=== PATIENT | female | born 1980 | race Caucasian/White ===

== ENCOUNTER 2020-06-28 12:35 | Emergency (ER) | payer SELFPAY ==
[~2020-06-28] VITALS: Ht 162.6 cm; Wt 50.0 kg
[2020-06-28] MEDS ORDERED: NS IV 1000 ML 1,000 ML IV SCH (13:00)
[2020-06-28] MEDS ORDERED: cefTRIAXone FOR IV USE 2,000 MG in WATER (STERILE) FOR INJECTION 20 ML IV ONE (13:00)
--- NOTE | 2020-06-28 13:05 | ED Upper Extremity ---
General Chief Complaint: Upper Extremity Stated Complaint: R ARM SWOLLEN History of Present Illness Date Seen by Provider: Jun 28, 2020 Time Seen by Provider: 12:42 Initial Comments 39-year-old female reports on 06/25/2020 that she was attempting to inject methamphetamines when she missed the vein and caused extravasation into her right forearm. Patient does report she was using a clean needle. Since then she has been having pain and swelling in her right upper extremity throughout the forearm. She does repeat Jere having a tetanus vaccine within the last 3 months after falling and cutting herself on glass. She did begin taking Keflex 250 mg every 8 hours that she was prescribed for the injury with glass. She denies having a primary care provider. She reports using methamphetamines approximately once a week, denies any other drug use. Has been taking Ibuprofen for pain. Onset: other (06/25/20) Pain/Injury Location: right arm Method of Injury: other (Injected Meth on 06/25/20, missed the vein. Swelling started shortly after and getting worse, with pain and erythema. ) Modifying Factors: Improves With Rest Allergies and Home Medications Allergies Coded Allergies: amoxicillin (Verified Allergy, Unknown, 06/28/20) clavulanic acid (Verified Allergy, Unknown, 06/28/20) levofloxacin (Verified Allergy, Unknown, 06/28/20) Home Medications Clindamycin HCl 300 Mg Capsule, 300 MG PO BID Prescribed by: PAL CRANE on 06/28/20 1441 Patient Home Medication List Home Medication List Reviewed: Yes Review of Systems Constitutional: no symptoms reported, see HPI Respiratory: no symptoms reported, see HPI Musculoskeletal: see HPI; No joint pain; muscle pain (Right forearm, secondary to swelling) All Other Systems Reviewed Negative Unless Noted: Yes Past Uhcobyo-Raedcg-Wfagju Hx Past Med/Social Hx: Reviewed and Corrections made Patient Social History Alcohol Use: Occasionally Uses Recreational Drug Use: Yes Drug of Choice: Methamphetamines Smoking Status: Current Everyday Smoker (1/2 pack/day) Type Used: Cigarettes Recent Foreign Travel: No Contact w/Someone Who Travel: No Physical Exam Vital Signs Vital Signs - First Documented 06/28/20 13:11 Temp 36.6 Pulse 117 Resp 18 B/P (MAP) 121/75 (90) Pulse Ox 99 O2 Delivery Room Air Capillary Refill : Height, Weight, BMI Height: '" Weight: lbs. oz. kg; BMI Method: General Appearance: WD/WN, no apparent distress HEENT: PERRL/EOMI, normal ENT inspection, TMs normal, pharynx normal Neck: non-tender, full range of motion, supple Cardiovascular: normal peripheral pulses, regular rate, rhythm Respiratory: chest non-tender, lungs clear, normal breath sounds Gastrointestinal: normal bowel sounds, non tender, soft Elbow/Forearm: Right, limited ROM (secondary to pain and swelling), pain, soft tissue tenderness, swelling (2+ ) Hand: Right, limited ROM, soft tissue tenderness, swelling Neurologic/Tendon: normal sensation, normal motor functions, normal tendon functions Neurologic/Psychiatric: no motor/sensory deficits, alert, normal mood/affect, oriented x 3 Skin: normal color, warm/dry, other Cap refill <3 sec, right upper ext, 2+ radial and ulnar pulse bilat UEs. Progress/Results/Core Measures Results/Orders Lab Results Laboratory Tests Test 06/28/20 12:55 Range/Units White Blood Count 12.9 H 4.3-11.0 10^3/uL Red Blood Count 4.51 3.80-5.11 10^6/uL Hemoglobin 12.5 11.5-16.0 g/dL Hematocrit 39 35-52 % Mean Corpuscular Volume 87 80-99 fL Mean Corpuscular Hemoglobin 28 25-34 pg Mean Corpuscular Hemoglobin Concent 32 32-36 g/dL Red Cell Distribution Width 12.7 10.0-14.5 % Platelet Count 300 130-400 10^3/uL Mean Platelet Volume 9.6 9.0-12.2 fL Immature Granulocyte % (Auto) 0 % Neutrophils (%) (Auto) 73 42-75 % Lymphocytes (%) (Auto) 19 12-44 % Monocytes (%) (Auto) 7 0-12 % Eosinophils (%) (Auto) 1 0-10 % Basophils (%) (Auto) 0 0-10 % Neutrophils # (Auto) 9.3 H 1.8-7.8 10^3/uL Lymphocytes # (Auto) 2.4 1.0-4.0 10^3/uL Monocytes # (Auto) 0.9 0.0-1.0 10^3/uL Eosinophils # (Auto) 0.2 0.0-0.3 10^3/uL Basophils # (Auto) 0.1 0.0-0.1 10^3/uL Immature Granulocyte # (Auto) 0.1 0.0-0.1 10^3/uL Prothrombin Time 14.2 12.2-14.7 SEC INR Comment 1.1 0.8-1.4 Activated Partial Thromboplast Time 34 24-35 SEC Sodium Level 137 135-145 MMOL/L Potassium Level 4.0 3.6-5.0 MMOL/L Chloride Level 104 98-107 MMOL/L Carbon Dioxide Level 21 21-32 MMOL/L Anion Gap 12 5-14 MMOL/L Blood Urea Nitrogen 12 7-18 MG/DL Creatinine 0.80 0.60-1.30 MG/DL Estimat Glomerular Filtration Rate > 60 BUN/Creatinine Ratio 15 Glucose Level 105 70-105 MG/DL Lactic Acid Level 1.37 0.50-2.00 MMOL/L Calcium Level 8.4 L 8.5-10.1 MG/DL Corrected Calcium 8.6 8.5-10.1 MG/DL Total Bilirubin 0.3 0.1-1.0 MG/DL Aspartate Amino Transf (AST/SGOT) 18 5-34 U/L Alanine Aminotransferase (ALT/SGPT) 23 0-55 U/L Alkaline Phosphatase 71 40-136 U/L C-Reactive Protein High Sensitivity 11.29 H 0.00-0.50 MG/DL Total Protein 7.3 6.4-8.2 GM/DL Albumin 3.8 3.2-4.5 GM/DL My Orders Orders - PAL CRANE Cbc With Automated Diff (06/28/20 12:53) Comprehensive Metabolic Panel (06/28/20 12:53) Hs C Reactive Protein (06/28/20 12:53) Lactic Acid Analyzer (06/28/20 12:53) Protime With Inr (06/28/20 12:53) Partial Thromboplastin Time (06/28/20 12:53) Blood Culture (06/28/20 12:53) Ed Iv/Invasive Line Start (06/28/20 12:55) Ns Iv 1000 Ml (Sodium Chloride 0.9%) (06/28/20 13:00) Ceftriaxone For Iv Use (Rocephin For I (06/28/20 13:00) Tramadol Tablet (Ultram Tablet) (06/28/20 13:15) Medications Given in ED Current Medications Medications Dose Ordered Sig/Jens Route Start Time Stop Time Status Last Admin Dose Admin Ceftriaxone Sodium 2000 mg/ Sterile Water 20 ml @ 240 mls/hr ONCE ONCE IV 06/28/20 13:00 06/28/20 13:04 DC 06/28/20 13:30 240 MLS/HR Tramadol HCl 50 mg ONCE ONCE PO 06/28/20 13:15 06/28/20 13:16 DC 06/28/20 13:29 50 MG Vital Signs/I&O 06/28/20 06/28/20 13:11 15:35 Temp 36.6 Pulse 117 94 Resp 18 18 B/P (MAP) 121/75 (90) 118/73 Pulse Ox 99 100 O2 Delivery Room Air Room Air Progress Progress Note : Time: 12:42 Progress Note Patient seen and evaluated, will obtain labs, normal saline 1 L per IV, Rocephin 2 g IV. 1330 labs essentially normal, slight elevation of WBC and CRP. Lactic Acid level was normal. Pulse 80-90, has remained afebrile. Reports pain improved since the tramadol. 1445 antibiotic completed infusing. Discharge instructions and return precautions reviewed. All questions answered. Departure Impression Primary Impression: Cellulitis of right upper limb Additional Impression: Methamphetamine abuse Disposition: 01 HOME, SELF-CARE Condition: Improved Departure-Patient Inst. Decision time for Depature: 14:45 Referrals: [facility]/ANTOINE HERNANDEZ,LOCAL PHYSICIAN (PCP) Primary Care Physician Patient Instructions: Cellulitis (Skin Infection), Adult (DC), Drug Abuse and Drug Addiction (DC) Add. Discharge Instructions: Take antibiotic, as prescribed. Alternate between ibuprofen 600 mg and Tylenol 650 mg every 4 hours for pain. Elevate your right arm higher than your heart to help with the swelling. You may apply warm moist compresses to your right arm to help with swelling. Follow-up at [facility] in [place] in 2 days for reevaluation, sooner if symptoms are worsening instead of improving. Return to the emergency department for new, urgent healthcare needs. All discharge instructions reviewed with patient and/or family. Voiced understanding. Scripts Clindamycin HCl (Clindamycin HCl) 300 Mg Capsule 300 MG PO BID, #20 CAP 0 Refills Prov: PAL CRANE 06/28/20 PAL CRANE Jun 28, 2020 13:05
[2020-06-28 13:18] LABS: BASOPHILS # (AUTO) 0.1 10^3/uL (0.0-0.1); BASOPHILS % (AUTO) 0 % (0-10); EOSINOPHILS # (AUTO) 0.2 10^3/uL (0.0-0.3); EOSINOPHILS % (AUTO) 1 % (0-10); HEMATOCRIT 39 % (35-52); HEMOGLOBIN 12.5 g/dL (11.5-16.0); LYMPHOCYTES # (AUTO) 2.4 10^3/uL (1.0-4.0); LYMPHOCYTES % (AUTO) 19 % (12-44); MEAN CORPUSCULAR HEMOGLOBIN 28 pg (25-34); MEAN CORPUSCULAR HGB CONC 32 g/dL (32-36); MEAN CORPUSCULAR VOLUME 87 fL (80-99); MEAN PLATELET VOLUME 9.6 fL (9.0-12.2); MONOCYTES # (AUTO) 0.9 10^3/uL (0.0-1.0); MONOCYTES % (AUTO) 7 % (0-12); NEUTROPHILS # (AUTO) 9.3 10^3/uL (1.8-7.8); NEUTROPHILS % (AUTO) 73 % (42-75); PLATELET COUNT 300 10^3/uL (130-400); WHITE BLOOD COUNT 12.9 10^3/uL (4.3-11.0)
[2020-06-28 13:32] LABS: ALBUMIN 3.8 GM/DL (3.2-4.5); INR 1.1 (0.8-1.4); PROTHROMBIN TIME PATIENT 14.2 SEC (12.2-14.7)
[2020-06-28 13:33] LABS: CHLORIDE 104 MMOL/L (98-107); SODIUM 137 MMOL/L (135-145)
[2020-06-28 13:34] LABS: CALCIUM 8.4 MG/DL (8.5-10.1)
[2020-06-28 13:35] LABS: GLUCOSE 105 MG/DL (70-105); TOTAL PROTEIN 7.3 GM/DL (6.4-8.2)
[2020-06-28 13:36] LABS: CARBON DIOXIDE 21 MMOL/L (21-32)
[2020-06-28 13:37] LABS: BILIRUBIN,TOTAL 0.3 MG/DL (0.1-1.0)
[2020-06-28 13:38] LABS: ALKALINE PHOSPHATASE 71 U/L (40-136)
[2020-06-28 13:39] LABS: GFR ESTIMATED > 60
[2020-06-28 13:40] LABS: BUN/CREATININE RATIO 15
[2020-06-28 13:42] LABS: ALANINE AMINOTRANSFERASE 23 U/L (0-55)
[2020-06-28] MEDS ORDERED: CLIN300C12 PO (14:41)
[2020-06-28 15:35] VITALS: BP 118/73
== END 2020-06-28 15:35 | disposition home or self-care (01) ==
LOC: ER 12:37
DX: L03.113 Cellulitis of right upper limb (principal); F15.10 Other stimulant abuse, uncomplicated; F17.210 Nicotine dependence, cigarettes, uncomplicated; Z88.1 Allergy status to other antibiotic agents
CPT/HCPCS: 36415; 80053; 83605; 85025; 85610; 85730; 86141; 87040